=== PATIENT | male | born 1980 | race Caucasian/White ===

== ENCOUNTER 2016-08-04 19:35 | Emergency (ER) | payer SELFPAY ==
[~2016-08-04 19:35] MED LIST: CIPRO PO; DILANTIN; DILANTIN PO; MOTRIN600 MG PO; NAPROSYN500 MG PO; NO MEDICATIONS; PHENERGAN25 MG PO; PRILOSEC20 M1 PO; PYRIDIUM PO; TRAMADOL HCL50 M1 PO; VICODIN 5/1 TAB 5/50 PO
== END 2016-08-04 19:55 | disposition home or self-care (01) ==
LOC: CFTX 19:35
DX: H10.31 Unspecified acute conjunctivitis, right eye (principal); F17.210 Nicotine dependence, cigarettes, uncomplicated
CPT/HCPCS: 99283

== ENCOUNTER 2016-12-20 04:46 | Emergency (ER) | payer MEDICAID ==
[2016-12-21] MEDS ORDERED: BENADRYL25 M1 PO (23:34)
[2016-12-21] MEDS ORDERED: PREDNISONE PO (23:35)
== END 2016-12-20 08:23 | disposition home or self-care (01) ==
LOC: CED 04:46
DX: R06.2 Wheezing (principal); L27.0 Generalized skin eruption due to drugs and medicaments taken internally; T37.8X5A Adverse effect of other specified systemic anti-infectives and antiparasitics, initial encounter; F17.210 Nicotine dependence, cigarettes, uncomplicated
CPT/HCPCS: 94640; 96374; 96375; 99283; J1200; J2930

== ENCOUNTER 2016-12-21 23:27 | Emergency (ER) | payer MEDICAID ==
[~2016-12-21] VITALS: Ht 170.2 cm; Wt 81.6 kg
[2016-12-21] MEDS ORDERED: BENADRYL25 M1 PO (23:34)
[2016-12-21] MEDS ORDERED: PREDNISONE PO (23:35)
== END 2016-12-22 00:27 | disposition home or self-care (01) ==
LOC: SED 23:27
DX: R21 Rash and other nonspecific skin eruption (principal); T36.95XA Adverse effect of unspecified systemic antibiotic, initial encounter; F17.200 Nicotine dependence, unspecified, uncomplicated
CPT/HCPCS: 96372; 99282; J1100